=== PATIENT | female | born 1990 | race Caucasian/White ===

== ENCOUNTER 2018-12-29 19:33 | Inpatient (IN) | payer OTHER ==
[~2018-12-29] VITALS: Ht 162.6 cm; Wt 85.7 kg
[2018-12-29 21:21] LABS: BASOPHILS % (AUTO) 1.1 % (0.0-2.0); EOSINOPHILS % (AUTO) 0.3 % (1.0-6.0); HEMATOCRIT 37.9 % (36-46); HEMOGLOBIN 12.9 g/dL (12.0-16.0); LYMPHOCYTES # (AUTO) 2.1 K/uL (1.0-4.8); LYMPHOCYTES % (AUTO) 35.9 % (22.0-44.0); MEAN CORPUSCULAR HEMOGLOBIN 30.9 pg (26.0-34.0); MEAN CORPUSCULAR HGB CONC 33.9 G/dL (31.0-37.0); MEAN CORPUSCULAR VOLUME 91 fL (80-100); MONOCYTES # (AUTO) 0.7 K/uL (0.1-1.0); MONOCYTES % (AUTO) 11.5 % (2.0-9.0); NEUTROPHILS % (AUTO) 51.2 % (40.0-70.0); PLATELET COUNT (AUTO) 371 K/uL (150-450); RED BLOOD CELL COUNT(AUTO) 4.17 MIL/uL (4.00-5.20); RED CELL DISTRIBUTION WIDTH 15.2 % (11.5-14.5)
[2018-12-29 21:41] LABS: ALANINE AMINOTRANSFERASE 44 U/L (12-78); ALBUMIN 3.6 g/dL (3.4-5.0); ALKALINE PHOSPHATASE 116 U/L (46-116); ANION GAP 6 mmol/L (8-16); ASPARTATE AMINOTRANSFERASE 30 U/L (15-37); BILIRUBIN,TOTAL 0.2 mg/dL (0.1-1.0); CALCIUM, TOTAL 9.1 mg/dL (8.8-10.5); CARBON DIOXIDE 26 mmol/L (22-29); CHLORIDE 106 mmol/L (98-107); CREATININE 0.82 mg/dL (0.60-1.30); GLOMERULAR FILTR. RATE CALC > 60 mL/min (>60); GLUCOSE,RANDOM 124 mg/dL (70-110); HCG,QUANTITATIVE < 1 mIU/mL (0-6); POTASSIUM 3.6 mmol/L (3.5-5.1); SODIUM SERUM 138 mmol/L (136-145); TOTAL PROTEIN, SERUM 7.4 g/dL (6.4-8.2); UREA NITROGEN, BLOOD 9 mg/dL (7-18)
[2018-12-29 21:56] LABS: AMPHET/METH SCREEN,URINE NEGATIVE (NEGATIVE); BARBITURATE SCREEN, URINE NEGATIVE (NEGATIVE); BENZODIAZEPINES SCREEN,URINE NEGATIVE (NEGATIVE); CANNABINOID SCREEN,URINE NEGATIVE (NEGATIVE); COCAINE SCREEN,URINE NEGATIVE (NEGATIVE); METHADONE SCREEN, URINE NEGATIVE (NEGATIVE); OPIATE SCREEN,URINE NEGATIVE (NEGATIVE)
[2018-12-29 21:57] LABS: PHENCYCLIDINE SCREEN,URINE NEGATIVE (NEGATIVE)
[2018-12-29] MEDS ORDERED: ONDANSETRON HCL 4 MG/2 ML VIAL IVP PRN (23:45)
[2018-12-29] MEDS ORDERED: 0.9% SODIUM CHLORIDE 10 ML SYRINGE IVP PRN (23:45)
[2018-12-29] MEDS ORDERED: ACETAMINOPHEN 325 MG TABLET PO PRN (23:45)
[2018-12-29] MEDS ORDERED: QUEtiapine FUMARATE 25 MG TABLET PO ONE (23:45)
[2018-12-29] MEDS ORDERED: LORazepam 2 MG/ML VIAL IM PRN (23:45)
[2018-12-29] MEDS ORDERED: ZOLPIDEM TARTRATE 5 MG TABLET PO PRN (23:45)
[2018-12-30] VITALS: BP 101/68
[2018-12-30 04:00] VITALS: BP 101/60
[2018-12-30 06:59] LABS: BASOPHILS % (AUTO) 1.5 % (0.0-2.0); EOSINOPHILS % (AUTO) 0.3 % (1.0-6.0); HEMATOCRIT 37.3 % (36-46); HEMOGLOBIN 12.6 g/dL (12.0-16.0); LYMPHOCYTES % (AUTO) 40.6 % (22.0-44.0); MEAN CORPUSCULAR HEMOGLOBIN 30.9 pg (26.0-34.0); MEAN CORPUSCULAR HGB CONC 33.7 G/dL (31.0-37.0); MEAN CORPUSCULAR VOLUME 92 fL (80-100); MONOCYTES # (AUTO) 0.5 K/uL (0.1-1.0); MONOCYTES % (AUTO) 10.7 % (2.0-9.0); NEUTROPHILS # (AUTO) 2.3 K/uL (1.8-7.7); NEUTROPHILS % (AUTO) 46.9 % (40.0-70.0); PLATELET COUNT (AUTO) 335 K/uL (150-450); RED BLOOD CELL COUNT(AUTO) 4.08 MIL/uL (4.00-5.20); RED CELL DISTRIBUTION WIDTH 15.4 % (11.5-14.5)
[2018-12-30 07:17] LABS: ANION GAP 8 mmol/L (8-16); CALCIUM, TOTAL 8.6 mg/dL (8.8-10.5); CARBON DIOXIDE 22 mmol/L (22-29); CHLORIDE 107 mmol/L (98-107); CREATININE 0.71 mg/dL (0.60-1.30); GLOMERULAR FILTR. RATE CALC > 60 mL/min (>60); GLUCOSE,RANDOM 96 mg/dL (70-110); POTASSIUM 3.9 mmol/L (3.5-5.1); SODIUM SERUM 137 mmol/L (136-145)
[2018-12-30 07:31] LABS: UREA NITROGEN, BLOOD 10 mg/dL (7-18)
[2018-12-30 07:45] VITALS: BP 106/62
[2018-12-30] MEDS ORDERED: DOCUSATE SODIUM 100 MG CAPSULE PO SCH (09:00)
[2018-12-30] MEDS ORDERED: PANTOPRAZOLE SODIUM 40 MG DR TABLET PO SCH (09:00)
[2018-12-30 11:18] VITALS: BP 104/52
[2018-12-30 15:43] VITALS: BP 113/69
== END 2018-12-30 18:10 | DRG 885 ==
LOC: EMS 19:47 → 6S 22:30
PROVIDERS: ADMIT Internal Medicine; ATTEND Internal Medicine
DX: F20.0 Paranoid schizophrenia (principal); F15.20 Other stimulant dependence, uncomplicated
CPT/HCPCS: 83735; G0480

== ENCOUNTER 2019-01-09 14:04 | Inpatient (IN) | payer OTHER ==
[~2019-01-09] VITALS: Ht 162.6 cm; Wt 78.5 kg
[2019-01-09 16:22] VITALS: BP 139/63
[2019-01-09] MEDS ORDERED: MAGNESIUM HYDROXIDE SUSPENSION 30 ML UDCUP PO PRN (16:45)
[2019-01-09] MEDS ORDERED: ZOLPIDEM TARTRATE 5 MG TABLET PO PRN (16:45)
[2019-01-09 17:54] LABS: BASOPHILS % (AUTO) 1.1 % (0.0-2.0); EOSINOPHILS % (AUTO) 0.2 % (1.0-6.0); HEMATOCRIT 39.4 % (36-46); HEMOGLOBIN 13.3 g/dL (12.0-16.0); LYMPHOCYTES # (AUTO) 1.5 K/uL (1.0-4.8); LYMPHOCYTES % (AUTO) 30.2 % (22.0-44.0); MEAN CORPUSCULAR HEMOGLOBIN 31.2 pg (26.0-34.0); MEAN CORPUSCULAR HGB CONC 33.9 G/dL (31.0-37.0); MEAN CORPUSCULAR VOLUME 92 fL (80-100); MONOCYTES # (AUTO) 0.3 K/uL (0.1-1.0); MONOCYTES % (AUTO) 6.3 % (2.0-9.0); NEUTROPHILS # (AUTO) 3.1 K/uL (1.8-7.7); NEUTROPHILS % (AUTO) 62.2 % (40.0-70.0); PLATELET COUNT (AUTO) 355 K/uL (150-450); RED BLOOD CELL COUNT(AUTO) 4.28 MIL/uL (4.00-5.20); RED CELL DISTRIBUTION WIDTH 15.2 % (11.5-14.5)
[2019-01-09 18:13] LABS: ALANINE AMINOTRANSFERASE 48 U/L (12-78); ALBUMIN 3.9 g/dL (3.4-5.0); ALKALINE PHOSPHATASE 112 U/L (46-116); ANION GAP 13 mmol/L (8-16); ASPARTATE AMINOTRANSFERASE 21 U/L (15-37); BILIRUBIN,TOTAL 0.4 mg/dL (0.1-1.0); CALCIUM, TOTAL 9.4 mg/dL (8.8-10.5); CARBON DIOXIDE 25 mmol/L (22-29); CHLORIDE 104 mmol/L (98-107); CREATININE 0.66 mg/dL (0.60-1.30); GLOMERULAR FILTR. RATE CALC > 60 mL/min (>60); GLUCOSE,RANDOM 97 mg/dL (70-110); POTASSIUM 4.2 mmol/L (3.5-5.1); SODIUM SERUM 142 mmol/L (136-145); TOTAL PROTEIN, SERUM 7.8 g/dL (6.4-8.2); UREA NITROGEN, BLOOD 8 mg/dL (7-18)
[2019-01-09 19:46] VITALS: BP 101/56
[2019-01-09] MEDS: ACETAMINOPHEN 325 MG TABLET PO PRN (20:44)
[2019-01-10 04:00] VITALS: BP 92/59
[2019-01-10 07:39] VITALS: BP 94/58
[2019-01-10 11:50] VITALS: BP 107/64
[2019-01-10] MEDS ORDERED: DiphenhydrAMINE HCL 25 MG CAPSULE PO PRN (12:00)
[2019-01-10] MEDS: HydrOXYzine PAMOATE 50 MG CAPSULE PO PRN (13:54)
[2019-01-10 15:52] VITALS: BP 93/66
[2019-01-10 19:56] VITALS: BP 102/64
[2019-01-10] MEDS: OLANZapine 5 MG TABLET PO SCH (20:15)
[2019-01-10 23:50] VITALS: BP 98/60
[2019-01-11 04:00] VITALS: BP 93/62
[2019-01-11 08:02] VITALS: BP 100/64
[2019-01-11 11:27] VITALS: BP 108/61
[2019-01-11] MEDS: HALOPERIDOL 5 MG TABLET PO PRN (15:41)
[2019-01-11 15:43] VITALS: BP 110/66
[2019-01-11 19:44] VITALS: BP 98/51
[2019-01-11] MEDS: OLANZapine 5 MG TABLET PO SCH (21:00)
[2019-01-11 23:43] VITALS: BP 96/50
[2019-01-12 04:57] VITALS: BP 109/70
[2019-01-12 07:27] VITALS: BP_SYST 136; BP_SYST 96; BP_DIAS 51; BP_DIAS 90
[2019-01-12] MEDS: HALOPERIDOL 5 MG TABLET PO PRN ×2 (08:06→18:12)
[2019-01-12 17:26] VITALS: BP 102/62
[2019-01-12 19:54] VITALS: BP 100/62
[2019-01-12] MEDS: OLANZapine 5 MG TABLET PO SCH (21:10)
[2019-01-13] VITALS (7 sets, daily range): BP systolic 99–134; BP diastolic 57–86
[2019-01-13] MEDS ORDERED: CALAMINE/PRAMOXINE HCL 180 ML LOTION TP PRN (09:45)
[2019-01-13] MEDS: HALOPERIDOL 5 MG TABLET PO PRN ×2 (12:06→19:11)
[2019-01-13] MEDS: ACETAMINOPHEN 325 MG TABLET PO PRN (19:14)
[2019-01-13] MEDS: OLANZapine 10 MG TABLET PO SCH (20:43)
[2019-01-14 04:45] VITALS: BP 107/66
[2019-01-14 07:35] VITALS: BP 100/68
[2019-01-14 11:16] VITALS: BP 107/59
[2019-01-14] MEDS: HydrOXYzine PAMOATE 50 MG CAPSULE PO PRN (15:12)
[2019-01-14 15:23] VITALS: BP 125/85
[2019-01-14] MEDS: ACETAMINOPHEN 325 MG TABLET PO PRN (18:40)
[2019-01-14 19:33] VITALS: BP 119/64
[2019-01-14] MEDS: OLANZapine 10 MG TABLET PO SCH ×2 (20:27→20:30)
[2019-01-15 05:30] VITALS: BP 116/71
[2019-01-15 06:36] LABS: ANION GAP 10 mmol/L (8-16); CARBON DIOXIDE 26 mmol/L (22-29); CHLORIDE 103 mmol/L (98-107); POTASSIUM 4.2 mmol/L (3.5-5.1); SODIUM SERUM 139 mmol/L (136-145)
[2019-01-15 06:48] LABS: CALCIUM, TOTAL 9.1 mg/dL (8.8-10.5); CREATININE 0.79 mg/dL (0.60-1.30); GLOMERULAR FILTR. RATE CALC > 60 mL/min (>60); GLUCOSE,RANDOM 93 mg/dL (70-110); UREA NITROGEN, BLOOD 9 mg/dL (7-18)
[2019-01-15 07:43] VITALS: BP 109/57
[2019-01-15] MEDS: HALOPERIDOL 5 MG TABLET PO PRN ×2 (08:47→16:15)
[2019-01-15 12:04] VITALS: BP 103/62
[2019-01-15] MEDS ORDERED: OLAN10TA3 PO (15:16)
[2019-01-15 16:52] VITALS: BP 100/65
== END 2019-01-15 17:01 | DRG 885 ==
LOC: EMS 14:05 → 6S 15:10
PROVIDERS: ADMIT Internal Medicine; ATTEND Internal Medicine
DX: F20.0 Paranoid schizophrenia (principal)
CPT/HCPCS: 87081

== ENCOUNTER 2019-02-09 01:41 | Inpatient (IN) | payer OTHER ==
[2019-02-09] VITALS (7 sets, daily range): BP systolic 97–121; BP diastolic 57–82
[~2019-02-09] VITALS: Ht 162.6 cm; Wt 83.6 kg
[~2019-02-09 01:41] MED LIST: OLAN10TA3 PO
[2019-02-09] MEDS ORDERED: ACETAMINOPHEN 325 MG TABLET PO PRN (02:00)
[2019-02-09 02:15] LABS: BASOPHILS % (AUTO) 0.8 % (0.0-2.0); EOSINOPHILS % (AUTO) 0 % (1.0-6.0); HEMATOCRIT 37.9 % (36-46); HEMOGLOBIN 13.3 g/dL (12.0-16.0); LYMPHOCYTES % (AUTO) 27.9 % (22.0-44.0); MEAN CORPUSCULAR HEMOGLOBIN 31.3 pg (26.0-34.0); MEAN CORPUSCULAR HGB CONC 35.1 G/dL (31.0-37.0); MEAN CORPUSCULAR VOLUME 89 fL (80-100); MONOCYTES # (AUTO) 0.8 K/uL (0.1-1.0); MONOCYTES % (AUTO) 10.9 % (2.0-9.0); NEUTROPHILS # (AUTO) 4.4 K/uL (1.8-7.7); NEUTROPHILS % (AUTO) 60.4 % (40.0-70.0); PLATELET COUNT (AUTO) 377 K/uL (150-450); RED BLOOD CELL COUNT(AUTO) 4.26 MIL/uL (4.00-5.20); RED CELL DISTRIBUTION WIDTH 13.4 % (11.5-14.5)
[2019-02-09 02:29] LABS: ANION GAP 7 mmol/L (8-16); CALCIUM, TOTAL 8.9 mg/dL (8.8-10.5); CARBON DIOXIDE 29 mmol/L (22-29); CHLORIDE 104 mmol/L (98-107); GLOMERULAR FILTR. RATE CALC > 60 mL/min (>60); GLUCOSE,RANDOM 99 mg/dL (70-110); POTASSIUM 3.6 mmol/L (3.5-5.1); SODIUM SERUM 140 mmol/L (136-145); UREA NITROGEN, BLOOD 9 mg/dL (7-18)
[2019-02-09 02:40] LABS: ALANINE AMINOTRANSFERASE 30 U/L (12-78); ALBUMIN 3.6 g/dL (3.4-5.0); ALKALINE PHOSPHATASE 98 U/L (46-116); ASPARTATE AMINOTRANSFERASE 22 U/L (15-37); BILIRUBIN,TOTAL 0.3 mg/dL (0.1-1.0); HCG,QUANTITATIVE < 1 mIU/mL (0-6); TOTAL PROTEIN, SERUM 7.6 g/dL (6.4-8.2)
[2019-02-09] MEDS ORDERED: ONDANSETRON HCL 4 MG TABLET PO PRN (06:15)
[2019-02-09] MEDS ORDERED: OxyCODONE HCL/ACETAMINOPHEN 5-325 MG TABLET PO PRN ×3 (06:15→22:45)
[2019-02-09] MEDS ORDERED: INFLUENZA VIRUS VACCINE QVS 2019-20 (3YR+)/PF 60 MCG/0.5 ML SYRINGE IM ONE (07:00)
[2019-02-09] MEDS: BISACODYL 5 MG EC TABLET PO SCH ×2 (08:30→20:18)
[2019-02-09 09:00] LABS: AMPHET/METH SCREEN,URINE NEGATIVE (NEGATIVE); BARBITURATE SCREEN, URINE NEGATIVE (NEGATIVE); BENZODIAZEPINES SCREEN,URINE NEGATIVE (NEGATIVE); CANNABINOID SCREEN,URINE NEGATIVE (NEGATIVE); COCAINE SCREEN,URINE NEGATIVE (NEGATIVE); METHADONE SCREEN, URINE NEGATIVE (NEGATIVE); OPIATE SCREEN,URINE NEGATIVE (NEGATIVE)
[2019-02-09 09:01] LABS: PHENCYCLIDINE SCREEN,URINE NEGATIVE (NEGATIVE)
[2019-02-09] MEDS ORDERED: DiphenhydrAMINE HCL 25 MG CAPSULE PO PRN (16:45)
[2019-02-09] MEDS: HydrOXYzine PAMOATE 50 MG CAPSULE PO PRN ×2 (17:19→21:43)
[2019-02-09] MEDS: OLANZapine 5 MG TABLET PO PRN (20:27)
[2019-02-09] MEDS ORDERED: 0.9% SODIUM CHLORIDE 10 ML SYRINGE IVP PRN (22:45)
[2019-02-09] MEDS ORDERED: ONDANSETRON HCL 4 MG/2 ML VIAL IVP PRN (22:45)
[2019-02-10] MEDS: OLANZapine 5 MG TABLET PO PRN (00:40)
[2019-02-10 04:51] VITALS: BP 97/62
[2019-02-10 06:18] LABS: BASOPHILS % (AUTO) 0.8 % (0.0-2.0); EOSINOPHILS % (AUTO) 0 % (1.0-6.0); HEMATOCRIT 37.3 % (36-46); HEMOGLOBIN 13.3 g/dL (12.0-16.0); LYMPHOCYTES % (AUTO) 40.5 % (22.0-44.0); MEAN CORPUSCULAR HEMOGLOBIN 31.9 pg (26.0-34.0); MEAN CORPUSCULAR HGB CONC 35.5 G/dL (31.0-37.0); MEAN CORPUSCULAR VOLUME 90 fL (80-100); MONOCYTES # (AUTO) 0.7 K/uL (0.1-1.0); MONOCYTES % (AUTO) 13.7 % (2.0-9.0); NEUTROPHILS # (AUTO) 2.2 K/uL (1.8-7.7); PLATELET COUNT (AUTO) 364 K/uL (150-450); RED BLOOD CELL COUNT(AUTO) 4.16 MIL/uL (4.00-5.20); RED CELL DISTRIBUTION WIDTH 13.4 % (11.5-14.5)
[2019-02-10 06:32] LABS: ANION GAP 10 mmol/L (8-16); CALCIUM, TOTAL 8.7 mg/dL (8.8-10.5); CARBON DIOXIDE 26 mmol/L (22-29); CHLORIDE 102 mmol/L (98-107); CREATININE 0.73 mg/dL (0.60-1.30); GLOMERULAR FILTR. RATE CALC > 60 mL/min (>60); GLUCOSE,RANDOM 109 mg/dL (70-110); POTASSIUM 3.5 mmol/L (3.5-5.1); SODIUM SERUM 138 mmol/L (136-145); UREA NITROGEN, BLOOD 10 mg/dL (7-18)
[2019-02-10 08:24] VITALS: BP 96/70
[2019-02-10] MEDS ORDERED: FAMOTIDINE 10 MG/ML 2 ML VIAL IVP SCH (09:00)
[2019-02-10] MEDS: BISACODYL 5 MG EC TABLET PO SCH ×2 (09:00→21:03)
[2019-02-10 11:55] VITALS: BP 96/55
[2019-02-10] MEDS: OLANZapine 5 MG TABLET PO SCH (12:49)
[2019-02-10 15:43] VITALS: BP 93/51
[2019-02-10 20:05] VITALS: BP 99/64
[2019-02-10] MEDS: OLANZapine 10 MG TABLET PO SCH (21:03)
[2019-02-10 23:30] VITALS: BP 102/56
[2019-02-11 05:35] VITALS: BP 105/73
[2019-02-11 07:26] VITALS: BP 97/63
[2019-02-11] MEDS: FAMOTIDINE 20 MG TABLET PO SCH (08:54)
[2019-02-11] MEDS: BISACODYL 5 MG EC TABLET PO SCH ×2 (08:54→20:30)
[2019-02-11] MEDS: OLANZapine 5 MG TABLET PO SCH (08:54)
[2019-02-11 11:46] VITALS: BP 99/79
[2019-02-11 15:20] VITALS: BP 95/70
[2019-02-11 19:55] VITALS: BP 101/67
[2019-02-11] MEDS: OLANZapine 10 MG TABLET PO SCH (20:30)
[2019-02-11] MEDS ORDERED: ZOLPIDEM TARTRATE 5 MG TABLET PO PRN (20:45)
[2019-02-11 23:27] VITALS: BP 98/60
[2019-02-12 05:15] VITALS: BP 103/67
[2019-02-12 07:36] VITALS: BP 95/69
[2019-02-12] MEDS: BISACODYL 5 MG EC TABLET PO SCH (09:00)
[2019-02-12] MEDS: OLANZapine 5 MG TABLET PO SCH (09:31)
[2019-02-12] MEDS: FAMOTIDINE 20 MG TABLET PO SCH (09:31)
[2019-02-12 11:43] VITALS: BP 100/71
[2019-02-12 16:10] VITALS: BP 103/69
[2019-02-12] MEDS ORDERED: OLAN5TAB2 PO ×2 (16:24→16:26)
== END 2019-02-12 19:22 | DRG 885 ==
LOC: EMS 01:42 → 6S 02:00
PROVIDERS: ADMIT Internal Medicine; ATTEND Internal Medicine
DX: F20.0 Paranoid schizophrenia (principal); R45.851 Suicidal ideations; F11.20 Opioid dependence, uncomplicated; E66.9 Obesity, unspecified; Z68.31 Body mass index [BMI] 31.0-31.9, adult
CPT/HCPCS: 87045; 89055; 90686; G0480; J3490

== ENCOUNTER 2019-02-14 05:23 | Inpatient (IN) | payer OTHER ==
[~2019-02-14] VITALS: Ht 162.6 cm; Wt 83.5 kg
[~2019-02-14 05:23] MED LIST changes: -OLAN10TA3 PO; +OLAN5TAB2 PO
[2019-02-14] MEDS ORDERED: ACETAMINOPHEN 325 MG TABLET PO PRN ×2 (05:45→12:15)
[2019-02-14] MEDS ORDERED: 0.9% SODIUM CHLORIDE 10 ML SYRINGE IVP PRN (05:45)
[2019-02-14] MEDS ORDERED: ONDANSETRON HCL 4 MG/2 ML VIAL IVP PRN (05:45)
[2019-02-14 06:15] VITALS: BP 121/68
[2019-02-14 06:43] LABS: AMPHET/METH SCREEN,URINE NEGATIVE (NEGATIVE); BARBITURATE SCREEN, URINE NEGATIVE (NEGATIVE); BENZODIAZEPINES SCREEN,URINE NEGATIVE (NEGATIVE); CANNABINOID SCREEN,URINE NEGATIVE (NEGATIVE); COCAINE SCREEN,URINE NEGATIVE (NEGATIVE); METHADONE SCREEN, URINE NEGATIVE (NEGATIVE); OPIATE SCREEN,URINE NEGATIVE (NEGATIVE)
[2019-02-14 06:44] LABS: PHENCYCLIDINE SCREEN,URINE NEGATIVE (NEGATIVE)
[2019-02-14 07:07] LABS: BASOPHILS % (AUTO) 0.6 % (0.0-2.0); EOSINOPHILS % (AUTO) 0 % (1.0-6.0); HEMATOCRIT 35.9 % (36-46); HEMOGLOBIN 12.6 g/dL (12.0-16.0); LYMPHOCYTES # (AUTO) 1.7 K/uL (1.0-4.8); LYMPHOCYTES % (AUTO) 36.6 % (22.0-44.0); MEAN CORPUSCULAR HEMOGLOBIN 31.4 pg (26.0-34.0); MEAN CORPUSCULAR HGB CONC 35.1 G/dL (31.0-37.0); MEAN CORPUSCULAR VOLUME 90 fL (80-100); MONOCYTES # (AUTO) 0.7 K/uL (0.1-1.0); MONOCYTES % (AUTO) 15.5 % (2.0-9.0); NEUTROPHILS # (AUTO) 2.2 K/uL (1.8-7.7); NEUTROPHILS % (AUTO) 47.3 % (40.0-70.0); PLATELET COUNT (AUTO) 326 K/uL (150-450); RED BLOOD CELL COUNT(AUTO) 4.01 MIL/uL (4.00-5.20)
[2019-02-14 07:33] LABS: ANION GAP 3 mmol/L (8-16); CALCIUM, TOTAL 8.6 mg/dL (8.8-10.5); CARBON DIOXIDE 31 mmol/L (22-29); CHLORIDE 103 mmol/L (98-107); CREATININE 0.72 mg/dL (0.60-1.30); GLOMERULAR FILTR. RATE CALC > 60 mL/min (>60); GLUCOSE,RANDOM 92 mg/dL (70-110); POTASSIUM 3.5 mmol/L (3.5-5.1); SODIUM SERUM 137 mmol/L (136-145); UREA NITROGEN, BLOOD 8 mg/dL (7-18)
[2019-02-14 07:45] LABS: ALANINE AMINOTRANSFERASE 46 U/L (12-78); ALBUMIN 3.3 g/dL (3.4-5.0); ALKALINE PHOSPHATASE 101 U/L (46-116); ASPARTATE AMINOTRANSFERASE 47 U/L (15-37); BILIRUBIN,TOTAL 0.3 mg/dL (0.1-1.0); HCG,QUANTITATIVE < 1 mIU/mL (0-6); TOTAL PROTEIN, SERUM 7.1 g/dL (6.4-8.2)
[2019-02-14 08:49] VITALS: BP 103/66
[2019-02-14] MEDS ORDERED: GuaiFENesin/D-METHORPHAN [SUGAR-FREE] 200-20MG/10 ML SYRUP UDCUP PO PRN (12:15)
[2019-02-14] MEDS ORDERED: LOPERAMIDE HCL 2 MG CAPSULE PO PRN (12:15)
[2019-02-14] MEDS ORDERED: NICOTINE 14 MG/24 HOUR PATCH TD PRN (12:15)
[2019-02-14] MEDS ORDERED: MAG HYDROX/AL HYDROX/SIMETH ES 30 ML SUSPENSION UDCUP PO PRN (12:15)
[2019-02-14] MEDS ORDERED: ALBUTEROL SULFATE HFA 90 MCG/PUFF 8 GM INHALER IH PRN (12:15)
[2019-02-14] MEDS ORDERED: ONDANSETRON HCL 4 MG TABLET PO PRN (12:15)
[2019-02-14] MEDS ORDERED: PETROLATUM,WHITE 28 GM JELLY TP PRN (12:15)
[2019-02-14] MEDS ORDERED: IBUPROFEN 400 MG TABLET PO PRN (12:15)
[2019-02-14] MEDS ORDERED: CloNIDine HCL 0.1 MG TABLET PO PRN (12:15)
[2019-02-14 12:39] VITALS: BP 97/60
[2019-02-14] MEDS: OLANZapine 5 MG TABLET PO SCH ×2 (14:01→20:38)
[2019-02-14] MEDS: DOCUSATE SODIUM 100 MG CAPSULE PO PRN (14:01)
[2019-02-14] MEDS: SERTRALINE HCL 50 MG TABLET PO SCH (14:01)
[2019-02-14 16:46] VITALS: BP 113/66
[2019-02-14 20:33] VITALS: BP 100/59
[2019-02-14 23:31] VITALS: BP 116/72
[2019-02-15 05:14] VITALS: BP 106/62
[2019-02-15 08:10] VITALS: BP 107/50
[2019-02-15] MEDS: SERTRALINE HCL 50 MG TABLET PO SCH (09:41)
[2019-02-15] MEDS: OLANZapine 5 MG TABLET PO SCH ×2 (09:41→20:39)
[2019-02-15] MEDS: DOCUSATE SODIUM 100 MG CAPSULE PO PRN (09:44)
[2019-02-15 11:32] VITALS: BP 103/55
[2019-02-15 16:14] VITALS: BP 116/68
[2019-02-15] MEDS: MAGNESIUM HYDROXIDE SUSPENSION 30 ML UDCUP PO PRN (19:00)
[2019-02-15 19:16] VITALS: BP 111/68
[2019-02-15 23:42] VITALS: BP 109/63
[2019-02-16 05:12] VITALS: BP 108/67
[2019-02-16 07:52] VITALS: BP 108/93
[2019-02-16] MEDS: SERTRALINE HCL 50 MG TABLET PO SCH (08:53)
[2019-02-16] MEDS: OLANZapine 5 MG TABLET PO SCH ×2 (08:53→20:25)
[2019-02-16 11:24] VITALS: BP 105/53
[2019-02-16 15:33] VITALS: BP 112/70
[2019-02-16 20:06] VITALS: BP 98/62
[2019-02-16] MEDS: MAGNESIUM HYDROXIDE SUSPENSION 30 ML UDCUP PO PRN (20:25)
[2019-02-17 07:54] VITALS: BP 97/56
[2019-02-17] MEDS: SERTRALINE HCL 50 MG TABLET PO SCH (11:24)
[2019-02-17] MEDS: OLANZapine 5 MG TABLET PO SCH ×2 (11:24→20:33)
[2019-02-17 11:41] VITALS: BP 115/79
[2019-02-17 15:08] VITALS: BP 95/55
[2019-02-17 20:18] VITALS: BP 100/54
[2019-02-17 23:30] VITALS: BP 106/62
[2019-02-18] VITALS (7 sets, daily range): BP systolic 79–101; BP diastolic 41–61
[2019-02-18] MEDS: SERTRALINE HCL 50 MG TABLET PO SCH (08:04)
[2019-02-18] MEDS: OLANZapine 5 MG TABLET PO SCH ×2 (08:04→20:11)
[2019-02-18] MEDS: DiphenhydrAMINE HCL 25 MG CAPSULE PO PRN (23:10)
[2019-02-19 04:00] VITALS: BP 100/61
[2019-02-19 08:25] VITALS: BP 104/56
[2019-02-19] MEDS: DOCUSATE SODIUM 100 MG CAPSULE PO PRN (09:32)
[2019-02-19] MEDS: OLANZapine 5 MG TABLET PO SCH (09:33)
[2019-02-19] MEDS: MAGNESIUM HYDROXIDE SUSPENSION 30 ML UDCUP PO PRN (09:33)
[2019-02-19] MEDS: SERTRALINE HCL 50 MG TABLET PO SCH (09:33)
[2019-02-19 11:44] VITALS: BP_SYST 129; BP_SYST 96; BP_DIAS 69; BP_DIAS 73
[2019-02-19 16:45] VITALS: BP 100/56
[2019-02-19 20:00] VITALS: BP 106/78
[2019-02-19] MEDS: OLANZapine 10 MG TABLET PO SCH (20:47)
[2019-02-19] MEDS: DiphenhydrAMINE HCL 25 MG CAPSULE PO PRN (20:53)
[2019-02-20] VITALS (7 sets, daily range): BP systolic 92–137; BP diastolic 58–72
[2019-02-20] MEDS: SERTRALINE HCL 100 MG TABLET PO SCH (10:57)
[2019-02-20] MEDS: OLANZapine 10 MG TABLET PO SCH ×2 (10:57→20:09)
[2019-02-20] MEDS: DOCUSATE SODIUM 100 MG CAPSULE PO PRN (20:18)
[2019-02-20] MEDS: DiphenhydrAMINE HCL 25 MG CAPSULE PO PRN (20:19)
[2019-02-21 04:46] VITALS: BP 100/64
[2019-02-21 07:26] VITALS: BP 98/65
[2019-02-21] MEDS: OLANZapine 10 MG TABLET PO SCH ×3 (10:57→21:24)
[2019-02-21] MEDS: SERTRALINE HCL 100 MG TABLET PO SCH (10:57)
[2019-02-21 20:26] VITALS: BP 96/46
[2019-02-21] MEDS: MAGNESIUM HYDROXIDE SUSPENSION 30 ML UDCUP PO PRN (20:33)
[2019-02-21 21:20] VITALS: BP 110/63
[2019-02-21] MEDS: DiphenhydrAMINE HCL 25 MG CAPSULE PO PRN (21:29)
[2019-02-21 23:51] VITALS: BP 105/67
[2019-02-22 04:59] VITALS: BP 94/66
[2019-02-22 08:22] VITALS: BP 100/64
[2019-02-22 11:58] VITALS: BP 90/55
[2019-02-22] MEDS: SERTRALINE HCL 100 MG TABLET PO SCH (12:39)
[2019-02-22] MEDS: OLANZapine 10 MG TABLET PO SCH ×2 (12:39→20:15)
[2019-02-22 15:15] VITALS: BP 104/59
[2019-02-22 20:08] VITALS: BP 99/55
[2019-02-22 23:32] VITALS: BP 99/67
[2019-02-23 05:15] VITALS: BP 102/62
[2019-02-23 07:40] VITALS: BP 89/50
[2019-02-23] MEDS: OLANZapine 10 MG TABLET PO SCH ×2 (08:19→20:11)
[2019-02-23] MEDS: SERTRALINE HCL 100 MG TABLET PO SCH (08:19)
[2019-02-23] MEDS: MAGNESIUM HYDROXIDE SUSPENSION 30 ML UDCUP PO PRN (08:20)
[2019-02-23 11:40] VITALS: BP 100/59
[2019-02-23] MEDS ORDERED: BISACODYL 5 MG EC TABLET PO PRN (14:00)
[2019-02-23] MEDS ORDERED: BISACODYL 10 MG RECTAL RECTAL SUPPOSITORY PR PRN (16:00)
[2019-02-23 16:03] VITALS: BP 99/60
[2019-02-23 19:49] VITALS: BP 107/71
[2019-02-23] MEDS: DiphenhydrAMINE HCL 25 MG CAPSULE PO PRN (20:11)
[2019-02-24] VITALS (7 sets, daily range): BP systolic 87–108; BP diastolic 46–75
[2019-02-24] MEDS: OLANZapine 10 MG TABLET PO SCH ×2 (10:26→20:53)
[2019-02-24] MEDS: SERTRALINE HCL 100 MG TABLET PO SCH (10:26)
[2019-02-24] MEDS: DiphenhydrAMINE HCL 25 MG CAPSULE PO PRN (20:58)
[2019-02-25 04:39] VITALS: BP 99/62
[2019-02-25 07:25] VITALS: BP 107/69
[2019-02-25] MEDS: OLANZapine 10 MG TABLET PO SCH ×2 (08:50→19:55)
[2019-02-25] MEDS: SERTRALINE HCL 100 MG TABLET PO SCH (08:50)
[2019-02-25 11:37] VITALS: BP 104/60
[2019-02-25 17:01] VITALS: BP 95/56
[2019-02-25 19:10] VITALS: BP 108/65
[2019-02-25] MEDS: DiphenhydrAMINE HCL 25 MG CAPSULE PO PRN (19:55)
[2019-02-25 23:21] VITALS: BP 104/62
[2019-02-26 04:58] VITALS: BP 95/57
[2019-02-26 08:03] VITALS: BP 99/58
[2019-02-26] MEDS: SERTRALINE HCL 100 MG TABLET PO SCH (08:36)
[2019-02-26] MEDS: OLANZapine 10 MG TABLET PO SCH (08:36)
[2019-02-26 11:15] VITALS: BP 103/70
[2019-02-26] MEDS ORDERED: OLAN10TA3 PO (11:26)
[2019-02-26] MEDS ORDERED: SERT100T12 PO (11:27)
== END 2019-02-26 14:30 | DRG 885 ==
LOC: EMS 05:25 → 6S 05:30
PROVIDERS: ADMIT Internal Medicine; ATTEND Internal Medicine
DX: F25.1 Schizoaffective disorder, depressive type (principal); R45.851 Suicidal ideations; F32.9 Major depressive disorder, single episode, unspecified; Z79.899 Other long term (current) drug therapy
CPT/HCPCS: 87081; G0480